=== PATIENT | female | born 1945 | race Caucasian/White ===

== ENCOUNTER 2017-06-02 08:51 | Day surgery (SDC) | payer OTHER, BC ==
[~2017-06-02] VITALS: Ht 152.4 cm; Wt 42.6 kg
[2017-06-02] MEDS ORDERED: RANI-451 PO (11:37)
[2017-06-02] MEDS ORDERED: CHOL100013 PO (11:37)
[2017-06-02] MEDS ORDERED: TERI250S2 SUBQ (11:37)
[2017-06-02] MEDS ORDERED: SYN.075 PO (11:37)
[2017-06-02] MEDS ORDERED: PANT40EC PO (11:37)
[2017-06-02] MEDS ORDERED: MIRABULK PO (11:37)
[2017-06-02] MEDS ORDERED: CARB1TER4 PO (11:37)
[2017-06-02] MEDS ORDERED: MIDAZOLAM 2 MG/2 ML VIAL ONE (11:59)
[2017-06-02] MEDS ORDERED: fentaNYL 0.05 MG/ML VIAL ONE (12:00)
[2017-06-02] MEDS ORDERED: fentaNYL 0.05 MG/ML VIAL IVP ONE (16:00)
[2017-06-02] MEDS ORDERED: MIDAZOLAM 2 MG/2 ML VIAL IVP ONE (16:00)
== END 2017-06-02 15:12 | disposition home or self-care (01) ==
LOC: MDS 08:51 → MMU 08:52 → MDS 15:12
PROVIDERS: ATTEND Internal Medicine Gastroenterology
DX: R13.10 Dysphagia, unspecified (principal); M81.0 Age-related osteoporosis without current pathological fracture; G20 Parkinson's disease; Z90.710 Acquired absence of both cervix and uterus; Z98.42 Cataract extraction status, left eye; Z98.41 Cataract extraction status, right eye; Z85.3 Personal history of malignant neoplasm of breast
CPT/HCPCS: 43246; J0690; J2250; J3010; J7030; J7060; J7120